=== PATIENT | female | born 1965 | race Caucasian/White ===

== ENCOUNTER 2019-08-27 16:32 | Emergency (ER) | payer BC ==
--- NOTE | 2019-08-27 16:43 | ED ---
HPI Chest Pain - HPI Summary HPI Summary: 53 year old F presenting to [facility] complains of intermittent episodes of left- sided chest pain described as pressure/"a stitch" lasting several minutes with associated shortness of breath, left jaw pain, left shoulder pain, left calf pain, and left calf tingliness that started "a couple weeks" ago, with the last episode being 2 hours ago (15:00). Patient reports no discomfort currently and rates the pain 0/10 in severity. Patient states that at its most severe, the pain is rated 5/10 in severity. She denies nausea, diaphoresis, headache, fever , cough. Denies recent travel. Patient states that 2 hours ago at work, she developed dizziness and left thumb swelling which she has never had before. Denies injury to left thumb. Symptoms aggravated by deep breathing. Symptoms alleviated by nothing. Patient states she took Xanax [employer] with no relief. Patient has an echo scheduled with Dr. Nunez, cardiology, in 1.5 weeks. PMHx: heart murmur, breast cancer 10 years ago, "broken heart syndrome" (Takotsubo) dx 'd after cardiac catheterization 2015 at [facility]. Cardiac cath showed no evidence of atherosclerotic diseas. FHx: mother had an NJ in her late 50s. Denies FHx DVT. Patient seen in at 14:38. Patient to Room 18 at 16:49. Vital signs at triage: HR 75 bpm, BP 152/78, O2 sat 100% Home Medications Medication Instructions Recorded Confirmed Type Aspirin EC TAB* [Ecotrin EC Low 81 mg PO DAILY 08/27/19 08/27/19 History Dose 81 MG*] Verapamil SR TAB* [Calan Sr TAB*] 240 mg PO DAILY 08/27/19 08/27/19 History - History of Current Complaint Time Seen by Provider: 08/27/19 16:37 Hx Obtained From: Patient, Medical Records Onset/Duration: Started Weeks Ago, Still Present, Worse Since - 2 hours ago Time of Onset: 15:00 Timing: Intermittent, Lasting Minutes Initial Severity: Moderate Current Severity: None Pain Intensity: 0 Pain Scale Used: 0-10 Numeric Chest Pain Location: Mid Sternal Chest Pain Radiates: No Character: Pressure/Squeezing, Other: - "a stitch" Aggravating Factor(s): Deep Breaths Alleviating Factor(s): Nothing Associated Signs and Symptoms: Positive: Negative - nausea, diaphoresis, headache, fever, cough, Dizziness, Other: - positive: dizziness, shortness of breath, left jaw pain, left shoulder pain, left calf pain, and left calf tingliness, left thumb swelling - Allergy/Home Medications Allergies/Adverse Reactions: Allergies Allergy/AdvReac Type Severity Reaction Status Date / Time No Known Allergies Allergy Verified 08/27/19 16:46 Home Medications: Home Medications Aspirin EC TAB* [Ecotrin EC Low Dose 81 MG*] 81 mg PO DAILY 08/27/19 [History Confirmed 08/27/19] Verapamil SR TAB* [Calan Sr TAB*] 240 mg PO DAILY 08/27/19 [History Confirmed ] PMH/Surg Hx/FS Hx/Imm Hx Previously Healthy: No Endocrine/Hematology History: Denies: Hx Diabetes Cardiovascular History: Reports: Hx Hypertension, Other Cardiovascular Problems/ Disorders - hx heart murmur, hx Takotsubo syndrome, hx cardiac cath 2015 Denies: Hx Congestive Heart Failure, Hx Pacemaker/ICD GI History: Reports: Hx Gastroesophageal Reflux Disease History: Denies: Hx Dialysis, Hx Renal Disease Musculoskeletal History: Reports: Hx Arthritis Denies: Hx Osteoporosis Sensory History: Reports: Hx Contacts or Glasses - GLASSES Denies: Hx Hearing Aid Opthamlomology History: Reports: Hx Contacts or Glasses - GLASSES Psychiatric History: Reports: Hx Anxiety Denies: Hx Panic Disorder - Cancer History Cancer Type, Location and Year: RIGHT BREAST-2007 Hx Chemotherapy: Yes - RIGHT BREAST Hx Radiation Therapy: Yes - RIGHT BREAST - Surgical History Surgery Procedure, Year, and Place: RIGHT LUMPECTOMY, FX RIGHT FEMUR 1981, RIGHT LEG LENGTHENING. OVARIES REMOVED. Cardiac cath 2015 [facility], no disease Hx Anesthesia Reactions: No Infectious Disease History: No - Family History Known Family History: Positive: Cardiac Disease - Social History Alcohol Use: Occasionally Substance Use Type: Reports: None Hx Tobacco Use: Yes Smoking Status (MU): Former Smoker Amount Used/How Often: 1/2 PPD X 20 YEARS Review of Systems Negative: Fever, Skin Diaphoresis Positive: Chest Pain Positive: Shortness Of Breath. Negative: Cough Negative: Nausea Positive: no symptoms reported Positive: Other - left jaw pain, left shoulder pain, left calf pain, and left calf tingliness, left thumb swelling Skin: Negative Neurological: Other - Dizziness Negative: Headache Psychological: Normal All Other Systems Reviewed And Are Negative: Yes Physical Exam - Summary Physical Exam Summary: Appearance: Well-appearing, no acute pain distress, well-nourished Skin: Warm, color reflects adequate perfusion, dry Head: Normal Head/Face inspection, atraumatic Eyes: Conjunctiva clear ENT: Normal inspection Neck: Supple, no nodes, no JVD Respiratory: Diminished breath sounds throughout, no wheezes, no respiratory distress Cardio: RRR, 2/6 systolic murmur over the base, pulses normal, brisk capillary refill Abdomen: Soft, nontender Bowel sounds: Present Musculoskeletal: Strength Intact/ROM intact, no calf tenderness, no edema, no redness, injury or swelling of left thumb apparent, full ROM, sensation intact. No left wrist pain or swelling. full ROM left wrist. Psychological: Normal Neuro: Alert, muscle tone normal, no focal deficit Triage Information Reviewed: Yes Vital Signs Reviewed: Yes Procedures - Sedation Patient Received Moderate/Deep Sedation with Procedure: No - Splinting Left Thumb Pre-Made Type: velcro Splint: thumb spica Pre-Proc Neuro Vasc Exam: normal Post-Proc Neuro Vasc Exam: normal Splint Applied by Provider: [facility] - Laboratory Result Diagrams: 08/27/19 17:03 08/27/19 17:03 Lab Statement: Any lab studies that have been ordered have been reviewed, and results considered in the medical decision making process. - Radiology Left thumb x-ray Radiology Interpretation Completed By: Radiologist Summary of Radiographic Findings: No radiographically apparent acute abnormality of the left thumb. If the patient's symptoms persist, follow-up imaging is recommended. ED physician has reviewed this report. CXR Radiology Interpretation Completed By: Radiologist Summary of Radiographic Findings: No radiographic evidence for acute cardiopulmonary abnormality on this portable chest x-ray. ED physician has reivewed this report. - CT Chest/Thorax CTA CT Interpretation Completed By: Radiologist Summary of CT Findings: No pulmonary emboli. No additional findings to correlate with patient's symptomatology. ED physician has reviewed this report. - EKG 1634 Cardiac Rate: NL - 66 BPM EKG Rhythm: Sinus Rhythm ST Segment: Non-Specific Ectopy: None EKG Comparison: No Significant Change - 07/19/16 Summary of EKG Findings: An EKG at 16:34 reveals sinus rhythm 66 BPM, nml AV/IV CT, nml QTc. Left axis (-15). No acute changes. Similar to prior EKG on . ED MD has reviewed and interpreted this EKG. Re-Evaluation - Re-Evaluation First Eval Re-Evaluation Time: 17:49 Change: Unchanged Comment: agrees to CTA Chest. denies pain at this time. HR 68, BP 151/97 Second Eval Re-Evaluation Time: 19:32 Change: Worse Comment: feels a little epigastric discomfort. states she feels like she needs to eat and take Tums. no chest pain. no shortness of breath Third Eval Re-Evaluation Time: 21:05 Change: Improved Comment: patient feels better after Pepcid. was able to eat. she is agreeable to discharge Chest Pain Course/Dx - Course Course Of Treatment: 53 year old F complains of intermittent episodes of left- sided chest pain described as pressure/"a stitch" lasting several minutes with associated shortness of breath, left jaw pain, left shoulder pain, left calf pain, and left calf tingliness that started "a couple weeks," last episode being 2 hours ago (15:00). Patient states that 2 hours ago at work, she developed dizziness and left thumb swelling which she has never had before. Upon exam, the patient is in no pain distress. She has diminished breath sounds throughout, no wheezes, and 2/6 systolic murmur over the base. There is no apparent swelling, redness or injury of the left thumb, and there is full ROM and sensation in the left thumb and left wrist. Patient medications reviewed this visit. Nurses notes reviewed. Allergies noted. High blood pressure noted. Bloodwork results with no significant abnormalities except for INR 1.15, APTT 38.9, BUN/Creatinine 25.4. Troponin I 0.00. Troponin II 0.00. Urinalysis results with no significant abnormalities except for specific gravity 1.001. An EKG at 16:34 reveals sinus rhythm 66 BPM, nml AV/IV CT, nml QTc. Left axis (- 15). No acute changes. Similar to prior EKG on 07/19/16. Left thumb x-ray shows , per radiologist: No radiographically apparent acute abnormality of the left thumb. If the patient's symptoms persist, follow-up imaging is recommended. CXR shows, per radiologist: No radiographic evidence for acute cardiopulmonary abnormality on this portable chest x-ray. CTA Chest/Thorax shows, per radiologist: No pulmonary emboli. No additional findings to correlate with patient's symptomatology. In the ED course, patient was givin aspirin 324 mg PO and normal saline fluids 1 L IV. The patient was also given Pepcid 20 mg IV because she was complaining of epigastric discomfort. ED MD placed a thumb spica splint on her left thumb with reported increased comfort of left thumb by patient. The patient feels better and would like to go home. Patient will be discharged home with follow up from Dr. Henderson, her primary care provider. She was advised to use Tylenol or ibuprofen for her left thumb pain. Patient was instructed to return to Emergency Department for new or worsening symptoms. Patient understands and is agreeable to this plan. - Chest Pain Differential Diagnosis/HQI/PQRI: Acute NJ, ACS, Angina, GI Disease, Lower Respiratory Infection, Pulmonary Embolism - Diagnoses Provider Diagnoses: Chest pain, Thumb sprain, Poor high blood pressure control, GERD ( gastroesophageal reflux disease), Cardiac murmur Discharge ED - Sign-Out/Discharge Documenting (check all that apply): Patient Departure - Discharge - Discharge Plan Condition: Stable Disposition: HOME Patient Education Materials: Chest Pain (ED) Referrals: Forrest Henderson MD [Primary Care Provider] - 2 Days Additional Instructions: Your labs did not show any evidence of elevated troponin or heart damage today. Your CT scan did not show a blood clot. You plain chest xray did not show any abnormalities. And your thumb xray also did not show any abnormalities. You may continue your usual meds. You may take Tylenol or ibuprofen for your thumb discomfort. Please return to the ER if you have any new or worsening symptoms. - Billing Disposition and Condition Condition: STABLE Disposition: Home - Attestation Statements Document Initiated by Scribe: Yes Documenting Scribe: Amanda Lopez Provider For Whom Eduardo is Documenting (Include Credential): Mary Tinoco MD Scribe Attestation: Amanda Gonzales, scribed for Mary Tinoco MD on 09/20/19 at 2044. Scribe Documentation Reviewed: Yes Provider Attestation: The documentation as recorded by the Amanda francisco accurately reflects the service I personally performed and the decisions made by me, Mary Tinoco MD Status of Scribe Document: Viewed
[2019-08-27] MEDS ORDERED: NS 0.9% 1000 ML** 1,000 ML IV ONE (17:08)
[2019-08-27] MEDS ORDERED: Aspirin 81 mg CHEW TAB* 81 MG TAB.CHEW PO ONE (17:08)
[2019-08-27 17:15] LABS: ABS Basophils 0.1 10^3/ul (0-0.2); ABS Eosinophils 0.1 10^3/ul (0-0.6); ABS Lymphocytes 2.1 10^3/ul (1.0-4.8); ABS Monocytes 0.8 10^3/ul (0-0.8); ABS Neutrophils 4.2 10^3/ul (1.5-7.7); Eosinophil % 1.3 %; Hematocrit 43 % (35-47); Hemoglobin 14.2 g/dL (12.0-16.0); Lymphocyte % 28.8 %; Mean Corpuscular HGB Conc 33 g/dL (31-36); Mean Corpuscular Hemoglobin 29 pg (27-31); Mean Corpuscular Volume 88 fL (80-97); Mean Platelet Volume 8.1 fL (7.4-10.4); Nucleated Red Blood Cells % 0.1; Platelet Count 285 10^3/uL (150-450); Red Blood Count 4.87 10^6 /uL (3.70-4.87); Red Cell Distribution Width 14 % (10-15); White Blood Count 7.2 10^3/uL (3.5-10.8)
[2019-08-27 17:26] LABS: INR 1.15 (0.82-1.09)
[2019-08-27 17:33] LABS: Albumin 4.4 g/dL (3.2-5.2); Albumin/Globulin Ratio 1.5 (1-3); BUN/Creatinine Ratio 25.4 (8-20); Calcium 9.5 mg/dL (8.6-10.3); EGFR African American 118.7 (>60); EGFR Non-African American 98.1 (>60); Potassium 3.8 mmol/L (3.5-5.0); Total Bilirubin 0.3 mg/dL (0.2-1.0); Total Protein 7.4 g/dL (6.4-8.9)
[2019-08-27 17:46] LABS: Activated Partial Thrombo Time 38.9 seconds (26.0-38.0)
[2019-08-27 17:53] LABS: Magnesium 2.1 mg/dL (1.9-2.7)
[2019-08-27 18:00] LABS: T4, Total 6.51 mcg/dL (6.09-12.23)
[2019-08-27] MEDS ORDERED: Iohexol 350* (CONTRAST) 500 ML MDV IV ONE (18:00)
[2019-08-27 18:04] LABS: TSH (Thyroid Stimulating Horm) 1.88 mcIU/mL (0.34-5.60)
[2019-08-27 18:09] LABS: Urine Appearance Clear; Urine Bilirubin Negative (Negative); Urine Blood Negative (Negative); Urine Color Colorless; Urine Glucose Negative (Negative); Urine Ketones Negative (Negative); Urine Nitrite Negative (Negative); Urine Protein Negative (Negative); Urine Specific Gravity 1.001 (1.010-1.030); Urine Urobilinogen Negative (Negative)
[2019-08-27] MEDS ORDERED: Famotidine IV* 10 MG/ML 2 ML (20 mg) IV SLOW PU ONE (19:53)
[2019-08-27 21:24] VITALS: BP 149/76
== END 2019-08-27 21:24 | disposition home or self-care (01) ==
LOC: ED 16:32
DX: R07.9 Chest pain, unspecified (principal); S63.601A Unspecified sprain of right thumb, initial encounter; I10 Essential (primary) hypertension; K21.9 Gastro-esophageal reflux disease without esophagitis; Z87.891 Personal history of nicotine dependence; X58.XXXA Exposure to other specified factors, initial encounter; Y92.9 Unspecified place or not applicable; Z79.82 Long term (current) use of aspirin; Z79.899 Other long term (current) drug therapy; Z85.3 Personal history of malignant neoplasm of breast
CPT/HCPCS: 36415; 71045; 71275; 80053; 81003; 82550; 82553; 83605; 83735; 83880; 84436; 84443; 84484; 85025; 85379; 85610; 85730; 93005; 96361; 96374; 99283; A9270-GY; Q9967

== ENCOUNTER 2021-06-17 10:52 | Inpatient (IN) ==
[2021-06-17] MEDS ORDERED: Heparin - STEMI 5,000 UNITS/ML 1 ml VIAL IV ONE ×2 (11:01→11:14)
[2021-06-17] MEDS ORDERED: NS 0.9% 1000 ml BAG 1,000 ML IV ONE (11:16)
[2021-06-17] MEDS ORDERED: Ondansetron 4 mg VIAL 2 MG/ML 2 ml VIAL IV ONE (11:16)
[2021-06-17 11:22] LABS: ABS Eosinophils 0.1 10^3/ul (0-0.6); ABS Lymphocytes 2.1 10^3/ul (1.0-4.8); ABS Monocytes 0.9 10^3/ul (0-0.8); ABS Neutrophils 3.6 10^3/ul (1.5-7.7); Eosinophil % 1.6 %; Hematocrit 44 % (35-47); Hemoglobin 14.7 g/dL (12.0-16.0); Lymphocyte % 31.5 %; Mean Corpuscular HGB Conc 33 g/dL (31-36); Mean Corpuscular Hemoglobin 29 pg (27-31); Mean Corpuscular Volume 88 fL (80-97); Mean Platelet Volume 8.5 fL (7.4-10.4); Nucleated Red Blood Cells % 0.1; Platelet Count 299 10^3/uL (150-450); Red Blood Count 5.05 10^6 /uL (3.70-4.87); Red Cell Distribution Width 14 % (10-15); White Blood Count 6.8 10^3/uL (3.5-10.8)
[2021-06-17 11:30] LABS: Activated Partial Thrombo Time 34.8 seconds (26.0-38.0); INR 1.25 (0.86-1.15)
[2021-06-17] MEDS ORDERED: Heparin 2 UNITS/ML 1000 mls 2,000 ML IV ONE (11:31)
[2021-06-17] MEDS ORDERED: Iohexol 350 (CONTRAST) 200 ML MDV IV ONE (11:31)
[2021-06-17] MEDS ORDERED: nitroGLYCERIN DRIP 0 MCG/0 ML BTL ONE (11:31)
[2021-06-17] MEDS ORDERED: Midazolam 5 mg/5 ml VIAL 1 mg/ml 5 ml VIAL (5 mg) ONE (11:31)
[2021-06-17] MEDS ORDERED: Lidocaine 1% VIAL 10 MG/ML VIAL ONE (11:31)
[2021-06-17] MEDS ORDERED: diPHENhydraMINE IV 50 MG/ML 1 ml VIAL (BENADRYL) ONE (11:32)
[2021-06-17] MEDS ORDERED: VERAPAMIL 2.5 MG/ML 2 ML VIAL ** 5 mg/2 ml ONE (11:34)
[2021-06-17 11:39] LABS: ALT 17 U/L (7-52); AST 24 U/L (13-39); Albumin 4.4 g/dL (3.2-5.2); Albumin/Globulin Ratio 1.5 (1-3); Alkaline Phosphatase 88 U/L (35-149); Anion Gap 8 mmol/L (2-11); Blood Urea Nitrogen 12 mg/dL (6-24); CO2 Carbon Dioxide 25 mmol/L (22-32); Calcium 9.8 mg/dL (8.6-10.3); Chloride 106 mmol/L (101-111); EGFR African American 124.7 (>60); Globulin 2.9 g/dL (2-4); Glucose 101 mg/dL (70-100); LDL Cholesterol Direct 74 mg/dL; Potassium 3.8 mmol/L (3.5-5.0); Sodium 139 mmol/L (135-145); Total Protein 7.3 g/dL (6.4-8.9)
[2021-06-17] MEDS ORDERED: Iohexol 300 (CONTRAST) 10 ML SDV ONE (11:41)
[2021-06-17 11:50] LABS: Troponin I 0.48 ng/mL (<0.03)
[2021-06-17] MEDS ORDERED: Heparin 1,000 UNIT/ML 10 ml (10,000 UNITS) CATHLAB/DIALYSIS ONE (11:59)
[2021-06-17] MEDS ORDERED: Bivalirudin 250 MG VIAL ONE ×2 (12:16→12:50)
[2021-06-17] MEDS ORDERED: nitroGLYCERIN DRIP 25,000 MCG/250 ML BTL ONE (12:17)
[2021-06-17] MEDS ORDERED: HYDROmorphone 1 MG/1 ML SYRINGE ONE ×2 (12:31→13:03)
[2021-06-17] MEDS ORDERED: NS 0.9% 1000 ml BAG 1,000 ML IV SCH (14:15)
[2021-06-17 22:08] LABS: Troponin I 8.47 ng/mL (<0.03)
[2021-06-18 04:07] LABS: ABS Eosinophils 0.1 10^3/ul (0-0.6); ABS Lymphocytes 1.9 10^3/ul (1.0-4.8); ABS Monocytes 1.1 10^3/ul (0-0.8); ABS Neutrophils 5.8 10^3/ul (1.5-7.7); Eosinophil % 0.9 %; Hematocrit 38 % (35-47); Hemoglobin 12.5 g/dL (12.0-16.0); Lymphocyte % 21.5 %; Mean Corpuscular HGB Conc 33 g/dL (31-36); Mean Corpuscular Hemoglobin 29 pg (27-31); Mean Corpuscular Volume 88 fL (80-97); Mean Platelet Volume 8.7 fL (7.4-10.4); Platelet Count 270 10^3/uL (150-450); Red Blood Count 4.26 10^6 /uL (3.70-4.87); Red Cell Distribution Width 13 % (10-15)
[2021-06-18 04:23] LABS: Blood Urea Nitrogen 10 mg/dL (6-24); CO2 Carbon Dioxide 24 mmol/L (22-32); Calcium 8.8 mg/dL (8.6-10.3); Chloride 109 mmol/L (101-111); Cholesterol 143 mg/dL; EGFR African American 140.8 (>60); EGFR Non-African American 116.4 (>60); Glucose 103 mg/dL (70-100); HDL Cholesterol 67.6 mg/dL; LDL Cholesterol 63 mg/dL; Sodium 139 mmol/L (135-145); Triglycerides 62 mg/dL
[2021-06-18 04:29] LABS: Troponin I 5.99 ng/mL (<0.03)
[2021-06-18 04:30] LABS: Anion Gap 6 mmol/L (2-11)
[2021-06-18] MEDS ORDERED: Perflutren Lipid Microsphere 3 ML VIAL ONE (08:58)
[2021-06-19 06:42] LABS: Anion Gap 5 mmol/L (2-11); Blood Urea Nitrogen 13 mg/dL (6-24); CO2 Carbon Dioxide 27 mmol/L (22-32); Calcium 9.6 mg/dL (8.6-10.3); Chloride 107 mmol/L (101-111); EGFR African American 129.7 (>60); EGFR Non-African American 107.2 (>60); Glucose 91 mg/dL (70-100); Magnesium 1.9 mg/dL (1.9-2.7); Phosphorus 3.1 mg/dL (2.5-5.0); Sodium 139 mmol/L (135-145)
[2021-06-19 10:36] LABS: Troponin I 3.23 ng/mL (<0.03)
[2021-06-19 11:13] VITALS: BP 132/64
== END 2021-06-19 12:57 | disposition home or self-care (01) | DRG 174 ==
LOC: ED 10:52 → ICU 11:39 → CHICATH 11:39 → ICU 14:47 → MEDTELE 06-18 16:08
PROVIDERS: ADMIT Internal Medicine Cardiovascular Disease; ATTEND Hospitalist

== ENCOUNTER 2023-01-01 15:33 | Inpatient (IN) ==
[2023-01-01] MEDS ORDERED: Heparin - STEMI 5,000 UNITS/ML 1 ml VIAL IV ONE (15:37)
[2023-01-01] MEDS ORDERED: VERAPAMIL 2.5 MG/ML 2 ML VIAL ** 5 mg/2 ml ONE (15:42)
[2023-01-01] MEDS ORDERED: Heparin 1,000 UNIT/ML 10 ml (10,000 UNITS) CATHLAB/DIALYSIS ONE (15:42)
[2023-01-01] MEDS ORDERED: fentaNYL 100 mcg/2 ml 50 MCG/ML VIAL ONE (15:42)
[2023-01-01] MEDS ORDERED: Midazolam 5 mg/5 ml VIAL 1 mg/ml 5 ml VIAL (5 mg) ONE (15:42)
[2023-01-01] MEDS ORDERED: Heparin 2 UNITS/ML 1000 mls 2,000 ML IV ONE (15:43)
[2023-01-01] MEDS ORDERED: Lidocaine 1% MPF 5 ML VIAL ONE (15:43)
[2023-01-01] MEDS ORDERED: nitroGLYCERIN DRIP 25,000 MCG/250 ML BTL ONE (15:43)
[2023-01-01] MEDS ORDERED: Iohexol 350 (CONTRAST) 100 ML PAK IV ONE (15:43)
[2023-01-01] MEDS ORDERED: Ondansetron 4 mg VIAL 2 MG/ML 2 ml VIAL ONE (15:45)
[2023-01-01 15:57] LABS: ABS Eosinophils 0.1 10^3/ul (0-0.6); ABS Lymphocytes 2.8 10^3/ul (1.0-4.8); ABS Monocytes 0.9 10^3/ul (0-0.8); ABS Neutrophils 4.4 10^3/ul (1.5-7.7); Eosinophil % 1.5 %; Hematocrit 43 % (35-47); Hemoglobin 13.8 g/dL (12.0-16.0); Lymphocyte % 33.9 %; Mean Corpuscular HGB Conc 32 g/dL (31-36); Mean Corpuscular Hemoglobin 28 pg (27-31); Mean Corpuscular Volume 87 fL (80-97); Mean Platelet Volume 8.3 fL (7.4-10.4); Platelet Count 289 10^3/uL (150-450); Red Blood Count 4.92 10^6 /uL (3.70-4.87); Red Cell Distribution Width 13 % (10-15); White Blood Count 8.4 10^3/uL (3.5-10.8)
[2023-01-01 16:00] LABS: Activated Partial Thrombo Time 32.9 seconds (26.0-38.0); INR 1.24 (0.88-1.18)
[2023-01-01] MEDS ORDERED: Bivalirudin 250 MG VIAL ONE (16:10)
[2023-01-01 16:34] LABS: High Sens Troponin Baseline 9 pg/mL (<15)
[2023-01-01] MEDS ORDERED: Prasugrel 10 mg TAB (NF) ONE (16:41)
[2023-01-01] MEDS ORDERED: NS 0.9% 1000 ml BAG 1,000 ML IV SCH (17:15)
[2023-01-01 17:17] LABS: ALT 17 U/L (7-52); Albumin 4.2 g/dL (3.2-5.2); Albumin/Globulin Ratio 1.4 (1-3); Alkaline Phosphatase 93 U/L (35-149); Blood Urea Nitrogen 18 mg/dL (6-24); CO2 Carbon Dioxide 27 mmol/L (22-32); Calcium 9.6 mg/dL (8.6-10.3); Chloride 105 mmol/L (101-111); Globulin 2.9 g/dL (2-4); Glucose 125 mg/dL (70-100); LDL Cholesterol Direct 68 mg/dL; Sodium 139 mmol/L (135-145); Total Protein 7.1 g/dL (6.4-8.9)
[2023-01-01 17:18] LABS: Anion Gap 7 mmol/L (2-11)
[2023-01-01 19:17] LABS: Magnesium 1.9 mg/dL (1.9-2.7)
[2023-01-02] MEDS: Calcium Carb (TUMS) 500 mg CHEW TAB PO PRN ×2 (02:44→08:56)
[2023-01-02 06:56] LABS: ABS Eosinophils 0.1 10^3/ul (0-0.6); ABS Lymphocytes 1.9 10^3/ul (1.0-4.8); ABS Monocytes 0.9 10^3/ul (0-0.8); ABS Neutrophils 3.9 10^3/ul (1.5-7.7); Eosinophil % 1.1 %; Hematocrit 40 % (35-47); Lymphocyte % 27.7 %; Mean Corpuscular HGB Conc 33 g/dL (31-36); Mean Corpuscular Hemoglobin 28 pg (27-31); Mean Corpuscular Volume 86 fL (80-97); Mean Platelet Volume 7.9 fL (7.4-10.4); Nucleated Red Blood Cells % 0.1; Platelet Count 251 10^3/uL (150-450); Red Blood Count 4.59 10^6 /uL (3.70-4.87); Red Cell Distribution Width 13 % (10-15); White Blood Count 6.8 10^3/uL (3.5-10.8)
[2023-01-02 07:26] LABS: Albumin 3.7 g/dL (3.2-5.2); Albumin/Globulin Ratio 1.5 (1-3); Calcium 9.2 mg/dL (8.6-10.3); Creatinine, Serum 0.48 mg/dL (0.51-0.95); Globulin 2.5 g/dL (2-4); HDL Cholesterol 71.2 mg/dL; Total Bilirubin 0.4 mg/dL (0.2-1.0); Total Protein 6.2 g/dL (6.4-8.9)
[2023-01-02] MEDS: CMCS: Prasugrel 10 mg TAB (NF) PO SCH (08:45)
[2023-01-02] MEDS ORDERED: Sulfur Hexaflouride MICROSPHR 25 MG VIAL ONE (09:35)
[2023-01-02] MEDS: [UNRECOGNIZED DRUG - OTHER] PO SCH (18:06)
[2023-01-03] MEDS: Calcium Carb (TUMS) 500 mg CHEW TAB PO PRN (05:15)
[2023-01-03 05:21] LABS: Hematocrit 41 % (35-47); Hemoglobin 12.8 g/dL (12.0-16.0); Mean Corpuscular HGB Conc 32 g/dL (31-36); Mean Corpuscular Hemoglobin 28 pg (27-31); Mean Corpuscular Volume 87 fL (80-97); Mean Platelet Volume 8.1 fL (7.4-10.4); Platelet Count 249 10^3/uL (150-450); Red Blood Count 4.63 10^6 /uL (3.70-4.87); Red Cell Distribution Width 13 % (10-15); White Blood Count 6.3 10^3/uL (3.5-10.8)
[2023-01-03 06:13] LABS: Calcium 9.1 mg/dL (8.6-10.3); Creatinine, Serum 0.54 mg/dL (0.51-0.95); Magnesium 1.9 mg/dL (1.9-2.7); Potassium 4.2 mmol/L (3.5-5.0)
[2023-01-03] MEDS: CMCS: Prasugrel 10 mg TAB (NF) PO SCH (08:03)
[2023-01-03] MEDS: [UNRECOGNIZED DRUG - OTHER] PO SCH (08:03)
[2023-01-03] MEDS ORDERED: Ondansetron 4 mg VIAL 2 MG/ML 2 ml VIAL ONE (09:58)
[2023-01-03] MEDS ORDERED: Ondansetron 4 mg VIAL 2 MG/ML 2 ml VIAL IV ONE (10:00)
[2023-01-03] MEDS ORDERED: Midazolam 5 mg/5 ml VIAL 1 mg/ml 5 ml VIAL (5 mg) ONE (10:02)
[2023-01-03] MEDS ORDERED: fentaNYL 100 mcg/2 ml 50 MCG/ML VIAL ONE (10:02)
[2023-01-03] MEDS ORDERED: VERAPAMIL 2.5 MG/ML 2 ML VIAL ** 5 mg/2 ml ONE (10:02)
[2023-01-03] MEDS ORDERED: nitroGLYCERIN DRIP 25,000 MCG/250 ML BTL ONE ×2 (10:02→11:06)
[2023-01-03] MEDS ORDERED: Heparin 1,000 UNIT/ML 10 ml (10,000 UNITS) CATHLAB/DIALYSIS ONE (10:02)
[2023-01-03] MEDS ORDERED: Heparin 2 UNITS/ML 1000 mls 3,000 ML IV ONE (10:02)
[2023-01-03] MEDS ORDERED: Iohexol 350 (CONTRAST) 100 ML PAK IV ONE (10:03)
[2023-01-03] MEDS ORDERED: Lidocaine 1% MPF 5 ML VIAL ONE (10:06)
[2023-01-03] MEDS ORDERED: Bivalirudin 250 MG VIAL ONE (10:47)
[2023-01-03] MEDS ORDERED: Acetaminophen IV 1 GM/100ML 1,000 MG/100 ML BAG IV PRN (11:50)
[2023-01-03] MEDS ORDERED: Morphine 2 MG/ML SYRINGE IV PRN (11:50)
[2023-01-03] MEDS ORDERED: Ondansetron 4 mg VIAL 2 MG/ML 2 ml VIAL IV PRN (12:37)
[2023-01-03] MEDS ORDERED: Prochlorperazine 5 mg/ml 2 ml VIAL (10 mg) IV ONE (12:38)
[2023-01-03] MEDS ORDERED: Prochlorperazine 5 mg/ml 2 ml VIAL (10 mg) ONE (12:43)
[2023-01-03] MEDS ORDERED: nitroGLYCERIN DRIP 25,000 MCG/250 ML BTL IV SCH (17:00)
[2023-01-03 18:19] VITALS: BP 158/74
== END 2023-01-03 18:11 | disposition home or self-care (01) | DRG 174 ==
LOC: ED 15:33 → ICU 17:04

== ENCOUNTER 2024-04-05 20:00 | Inpatient (IN) ==
[2024-04-05 21:01] LABS: Albumin 4.4 g/dL (3.2-5.2); Albumin/Globulin Ratio 1.8 (1-3); Calcium 9.9 mg/dL (8.6-10.3); Creatinine, Serum 0.61 mg/dL (0.51-0.95); Globulin 2.5 g/dL (2-4); Potassium 3.8 mmol/L (3.5-5.0); Total Bilirubin 0.3 mg/dL (0.2-1.0); Total Protein 6.9 g/dL (6.4-8.9); eGFR CKD-EPI 102.3 (>60)
[2024-04-05 21:17] LABS: ABS Eosinophils 0.1 10^3/uL (0.0-0.5); ABS Lymphocytes 3.2 10^3/uL (1.0-4.8); ABS Monocytes 0.9 10^3/uL (0.0-0.9); ABS Nucleated RBC 0.01 10^3/ul; Eosinophil % 1.5 %; Hematocrit 40.1 % (35-45); Hemoglobin 13.5 g/dL (11.5-14.3); Lymphocyte % 44.1 %; Mean Corpuscular Hemoglobin 29.5 pg (27-33); Mean Corpuscular Hgb Conc 33.6 g/dL (31-36); Mean Corpuscular Volume 87.8 fL (80-97); Mean Platelet Volume 8.4 fL (7.5-11.2); Nucleated Red Blood Cells % 0.1 %/100WBC (0.0-0.8); Platelet Count 280 10^3/uL (150-450); Red Blood Count 4.57 10^6/uL (3.63-4.92); Red Cell Distribution Width 13.5 % (12-17); White Blood Count 7.4 10^3/uL (3.8-11.8)
[2024-04-05 21:49] LABS: High Sensitivity Troponin 1 Hr 27 pg/mL (<15)
[2024-04-05] MEDS: Ondansetron 4 mg VIAL 2 MG/ML 2 ml VIAL IV ONE (21:53)
[2024-04-05] MEDS ORDERED: Ondansetron 4 mg VIAL 2 MG/ML 2 ml VIAL IV PRN (22:24)
[2024-04-05 23:02] LABS: HDL Cholesterol 72.3 mg/dL
[2024-04-05] MEDS: Nebivolol 2.5 mg TAB (NF) PO ONE (23:22)
[2024-04-06 00:04] LABS: High Sensitivity Troponin 3 Hr 89 pg/mL (<15)
[2024-04-06] MEDS ORDERED: Heparin 5000 UNITS/ML 1 mL VIAL IV SCH (01:00)
[2024-04-06 04:19] LABS: ABS Eosinophils 0.1 10^3/uL (0.0-0.5); ABS Lymphocytes 2.3 10^3/uL (1.0-4.8); ABS Neutrophils 3.3 10^3/uL (1.5-7.6); ABS Nucleated RBC 0.01 10^3/ul; Eosinophil % 1.2 %; Hematocrit 40.3 % (35-45); Hemoglobin 13.5 g/dL (11.5-14.3); Lymphocyte % 34.4 %; Mean Corpuscular Hemoglobin 29.3 pg (27-33); Mean Corpuscular Hgb Conc 33.5 g/dL (31-36); Mean Corpuscular Volume 87.5 fL (80-97); Mean Platelet Volume 8.1 fL (7.5-11.2); Nucleated Red Blood Cells % 0.1 %/100WBC (0.0-0.8); Platelet Count 266 10^3/uL (150-450); Red Blood Count 4.61 10^6/uL (3.63-4.92); Red Cell Distribution Width 13.3 % (12-17); White Blood Count 6.7 10^3/uL (3.8-11.8)
[2024-04-06 05:00] LABS: Calcium 9.7 mg/dL (8.6-10.3); Creatinine, Serum 0.48 mg/dL (0.51-0.95); Magnesium 2.1 mg/dL (1.9-2.7); Potassium 4.2 mmol/L (3.5-5.0); eGFR CKD-EPI 108.4 (>60)
[2024-04-06 05:35] LABS: High Sensitivity Troponin 1 Hr 129 pg/mL (<15)
[2024-04-06 06:29] LABS: High Sensitivity Troponin 3 Hr 127 pg/mL (<15)
[2024-04-06] MEDS ORDERED: NEBIVOLOL 2.5 MG PO SCH (09:00)
[2024-04-06] MEDS: Prasugrel 5 MG TAB (NF) PO SCH (09:11)
[2024-04-06] MEDS: Heparin DRIP 25,000 UNITS BAG 25,000 UNITS/250 ML BAG IV SCH (09:18)
[2024-04-06] MEDS: Nebivolol 2.5 mg TAB (NF) PO SCH ×2 (09:18→19:55)
[2024-04-06] MEDS: Potassium Chlor 20 meq TAB.ER PO SCH (19:55)
[2024-04-07 08:31] LABS: ABS Eosinophils 0.1 10^3/uL (0.0-0.5); ABS Lymphocytes 1.8 10^3/uL (1.0-4.8); ABS Monocytes 0.7 10^3/uL (0.0-0.9); ABS Neutrophils 2.4 10^3/uL (1.5-7.6); Eosinophil % 2.4 %; Hematocrit 42.2 % (35-45); Lymphocyte % 36.3 %; Mean Corpuscular Hemoglobin 29.1 pg (27-33); Mean Corpuscular Hgb Conc 33.1 g/dL (31-36); Mean Corpuscular Volume 88.1 fL (80-97); Mean Platelet Volume 8.3 fL (7.5-11.2); Nucleated Red Blood Cells % 0.1 %/100WBC (0.0-0.8); Platelet Count 276 10^3/uL (150-450); Red Blood Count 4.79 10^6/uL (3.63-4.92); Red Cell Distribution Width 13.7 % (12-17)
[2024-04-07 08:46] LABS: Creatinine, Serum 0.57 mg/dL (0.51-0.95); Potassium 4.4 mmol/L (3.5-5.0)
[2024-04-07] MEDS ORDERED: Midazolam 5 mg/5 ml VIAL 1 mg/ml 5 ml VIAL (5 mg) ONE (12:21)
[2024-04-07] MEDS ORDERED: fentaNYL 100 mcg/2 ml 50 MCG/ML VIAL ONE ×3 (12:21→14:22)
[2024-04-07] MEDS ORDERED: Lidocaine 1% MPF 5 ML VIAL ONE (12:56)
[2024-04-07] MEDS ORDERED: Heparin 2 UNITS/ML 1000 mls 1,000 ML IV ONE ×2 (12:56→14:47)
[2024-04-07] MEDS ORDERED: VERAPAMIL 2.5 MG/ML 2 ML VIAL ** 5 mg/2 ml ONE (12:56)
[2024-04-07] MEDS ORDERED: Heparin 1,000 UNIT/ML 10 ml (10,000 UNITS) CATHLAB/DIALYSIS ONE (12:56)
[2024-04-07] MEDS ORDERED: nitroGLYCERIN DRIP 25,000 MCG/250 ML BTL ONE (12:56)
[2024-04-07] MEDS ORDERED: Iohexol 350 (CONTRAST) 200 ML MDV IV ONE (13:06)
[2024-04-07] MEDS ORDERED: Bivalirudin 250 MG VIAL ONE ×2 (14:07→14:17)
[2024-04-07] MEDS ORDERED: Eptifibatide IV (Load dose) 2 MG/ML 10 ml VIAL ONE ×2 (14:25→14:35)
[2024-04-07] MEDS ORDERED: Prasugrel 10 mg TAB (NF) ONE ×2 (15:04→15:09)
[2024-04-07] MEDS: NS 0.9% 1000 ml BAG 1,000 ML IV SCH ×2 (17:07)
[2024-04-08] MEDS: Nebivolol 2.5 mg TAB (NF) PO SCH (03:57)
[2024-04-08 04:12] LABS: ABS Basophils 0.1 10^3/uL (0.0-0.1); ABS Eosinophils 0.1 10^3/uL (0.0-0.5); ABS Lymphocytes 2.1 10^3/uL (1.0-4.8); ABS Monocytes 0.8 10^3/uL (0.0-0.9); ABS Neutrophils 3.5 10^3/uL (1.5-7.6); ABS Nucleated RBC 0.01 10^3/ul; Eosinophil % 1.7 %; Hematocrit 38.1 % (35-45); Hemoglobin 12.5 g/dL (11.5-14.3); Lymphocyte % 32.3 %; Mean Corpuscular Hgb Conc 32.9 g/dL (31-36); Mean Corpuscular Volume 88.4 fL (80-97); Nucleated Red Blood Cells % 0.2 %/100WBC (0.0-0.8); Platelet Count 247 10^3/uL (150-450); Red Blood Count 4.31 10^6/uL (3.63-4.92); Red Cell Distribution Width 13.6 % (12-17); White Blood Count 6.6 10^3/uL (3.8-11.8)
[2024-04-08 04:57] LABS: Calcium 9.4 mg/dL (8.6-10.3); Creatinine, Serum 0.57 mg/dL (0.51-0.95); Magnesium 1.8 mg/dL (1.9-2.7); Potassium 4.2 mmol/L (3.5-5.0)
[2024-04-08] MEDS ORDERED: Dextrose 50% Syringe 50 ml 25 GM/50 ML SYRINGE IV PUSH PRN (05:52)
[2024-04-08] MEDS: Magnesium Sulfate IV 1GM/100ML 1 GM/100 ML BAG IV ONE (06:18)
[2024-04-08] MEDS: Prasugrel 10 mg TAB (NF) PO SCH (08:18)
[2024-04-08] MEDS: Metoprolol Tartrate 5 mg VIAL 5 ml VIAL (1 mg/ml) IV ONE (16:43)
[2024-04-08 17:36] LABS: Calcium 10.3 mg/dL (8.6-10.3); Creatinine, Serum 0.58 mg/dL (0.51-0.95); Magnesium 2.1 mg/dL (1.9-2.7); Potassium 3.9 mmol/L (3.5-5.0); eGFR CKD-EPI 103.5 (>60)
[2024-04-08] MEDS ORDERED: Nebivolol 2.5 mg TAB (NF) PO SCH (21:00)
[2024-04-09] MEDS: Calcium Carb (TUMS) 500 mg CHEW TAB PO PRN (09:20)
[2024-04-09 11:04] VITALS: BP 124/81
[2024-04-09] MEDS: Calcium Carb (TUMS) 500 mg CHEW TAB PO ONE (12:08)
== END 2024-04-09 14:15 | disposition home or self-care (01) | DRG 174 ==
LOC: ED 20:00 → EDHOLD 20:00 → SUATTDRO 22:24 → MEDTELE 04-06 00:46 → SUATTDRO 04-06 14:33 → ICU 04-07 15:35 → MEDTELE 04-08 12:04
PROVIDERS: ADMIT Internal Medicine; ATTEND Student in an Organized Health Care Education/Training Program

== ENCOUNTER 2024-08-16 22:44 | Observation (INO) ==
[2024-08-16 23:10] LABS: ABS Eosinophils 0.1 10^3/uL (0.0-0.5); ABS Lymphocytes 2.9 10^3/uL (1.0-4.8); ABS Monocytes 1.2 10^3/uL (0.0-0.9); ABS Neutrophils 3.7 10^3/uL (1.5-7.6); Eosinophil % 1.1 %; Hematocrit 41.1 % (35-45); Hemoglobin 13.9 g/dL (11.5-14.3); Lymphocyte % 36.5 %; Mean Corpuscular Hemoglobin 29.7 pg (27-33); Mean Corpuscular Hgb Conc 33.7 g/dL (31-36); Platelet Count 296 10^3/uL (150-450); Red Blood Count 4.67 10^6/uL (3.63-4.92); Red Cell Distribution Width 13.2 % (12-17); White Blood Count 7.9 10^3/uL (3.8-11.8)
[2024-08-16 23:23] LABS: INR 1.27 (0.85-1.14)
[2024-08-16 23:36] LABS: Albumin 4.3 g/dL (3.2-5.2); Albumin/Globulin Ratio 1.5 (1-3); Creatinine, Serum 0.66 mg/dL (0.51-0.95); Globulin 2.9 g/dL (2-4); Potassium 4.4 mmol/L (3.5-5.0); Total Bilirubin 0.3 mg/dL (0.2-1.0); Total Protein 7.2 g/dL (6.4-8.9); eGFR CKD-EPI 100.4 (>60)
[2024-08-17] MEDS: Iohexol 350 (CONTRAST) 500 ML MDV IV ONE (00:02)
[2024-08-17 00:30] LABS: High Sensitivity Troponin 1 Hr 3 pg/mL (<15)
[2024-08-17 03:04] LABS: High Sensitivity Troponin 3 Hr 3 pg/mL (<15)
[2024-08-17 06:29] LABS: ABS Eosinophils 0.1 10^3/uL (0.0-0.5); ABS Lymphocytes 2.4 10^3/uL (1.0-4.8); ABS Monocytes 0.9 10^3/uL (0.0-0.9); ABS Neutrophils 3.4 10^3/uL (1.5-7.6); Eosinophil % 1.3 %; Hematocrit 39.6 % (35-45); Hemoglobin 13.1 g/dL (11.5-14.3); Lymphocyte % 35.7 %; Mean Corpuscular Hgb Conc 33.2 g/dL (31-36); Mean Corpuscular Volume 87.5 fL (80-97); Mean Platelet Volume 7.8 fL (7.5-11.2); Nucleated Red Blood Cells % 0.1 %/100WBC (0.0-0.8); Platelet Count 285 10^3/uL (150-450); Red Blood Count 4.52 10^6/uL (3.63-4.92); Red Cell Distribution Width 13.2 % (12-17); White Blood Count 6.8 10^3/uL (3.8-11.8)
[2024-08-17 07:52] LABS: Calcium 9.7 mg/dL (8.6-10.3); Creatinine, Serum 0.52 mg/dL (0.51-0.95); Potassium 4.2 mmol/L (3.5-5.0); eGFR CKD-EPI 106.3 (>60)
[2024-08-17] MEDS ORDERED: CMCS:Nebivolol 2.5 mg TAB (NF) PO SCH (09:00)
[2024-08-17] MEDS ORDERED: PRASUGREL 5 MG PO SCH (09:00)
[2024-08-17] MEDS: CMC:Prasugrel 5 MG TAB (NF) PO SCH (11:50)
[2024-08-17 15:41] VITALS: BP 134/75
== END 2024-08-17 15:42 | disposition home or self-care (01) ==
LOC: EDHOLD 22:44 → ED 22:44 → SUATTDRO 08-17 03:15 → EDHOLD 08-17 15:41
PROVIDERS: ADMIT Internal Medicine; ATTEND Hospitalist